=== PATIENT | female | born 1990 | race Native Hawaiian/Other Pacific Islander ===

== ENCOUNTER 2020-06-17 07:57 | Day surgery (SDC) | payer OTHER ==
[~2020-06-17 07:57] MED LIST: MELOXICAM7.5 MG OR
[2020-06-17 08:29] LABS: PLATELET COUNT 275 K/uL (152-353)
[2020-06-17 08:33] LABS: POTASSIUM 3.8 mmol/L (3.6-5.2)
== END 2020-06-17 11:42 | disposition home or self-care (01) ==
LOC: OR 07:57
PROVIDERS: ATTEND Student in an Organized Health Care Education/Training Program
PROC: 0FT44ZZ Resection of Gallbladder, Percutaneous Endoscopic Approach (ICD-10-PCS; principal; 2020-06-17)
PROC: 0WQF4ZZ Repair Abdominal Wall, Percutaneous Endoscopic Approach (ICD-10-PCS; 2020-06-17)
DX: K81.1 Chronic cholecystitis (principal); K42.9 Umbilical hernia without obstruction or gangrene
CPT/HCPCS: 80053; 81025; 85027; J0132; J0330; J0690; J1100; J1170; J2250; J2270; J2405; J2704; J2795; J3490